=== PATIENT | female | born 1970 | race Caucasian/White ===

== ENCOUNTER 2019-07-23 09:51 | Day surgery (SDC) | payer MEDICAID ==
[2019-07-15 14:43] LABS: BASOPHILS % (AUTO) 0.4 % (0-1); EOSINOPHILS # (AUTO) 0.1 X10'3 (0-0.9); EOSINOPHILS % (AUTO) 0.8 % (0-6); LYMPHOCYTES # (AUTO) 1.9 X10'3 (1.1-4.8); LYMPHOCYTES % (AUTO) 20.3 % (21-51); MEAN CORPUSCULAR HEMOGLOBIN 32.1 PG (27.0-31.0); MEAN CORPUSCULAR HGB CONC 34.7 g/dL (33.0-36.5); MEAN CORPUSCULAR VOLUME 92.6 FL (78-98); MEAN PLATELET VOLUME 7.8 FL (7.4-10.4); MONOCYTES # (AUTO) 0.6 X10'3 (0-0.9); MONOCYTES % (AUTO) 6.4 % (2-12); NEUTROPHILS # (AUTO) 6.7 X10'3 (1.8-7.7); NEUTROPHILS % (AUTO) 72.1 % (42-75); PRE OP HEMATOCRIT 38.2 % (35.0-45.0); PRE OP HEMOGLOBIN 13.2 g/dL (12.0-16.0); PRE OP PLATELET COUNT 331 X10'3 (140-440); RED BLOOD COUNT 4.12 X10'6 (4.20-5.60); RED CELL DISTRIBUTION WIDTH 12.9 % (11.5-14.5)
[2019-07-15 14:55] LABS: ALBUMIN 3.5 G/DL (3.4-5.0); ALBUMIN/GLOBULIN RATIO 0.9 (1.1-1.5); ALKALINE PHOSPHATASE 48 IU/L (46-116); BLOOD UREA NITROGEN 8 MG/DL (7-18); BUN/CREATININE RATIO 9.9 (6.6-38.0); CHLORIDE 107 MMOL/L (99-107); CREATININE 0.81 MG/DL (0.40-0.90); PRE OP ALT 23 U/L (30-65); PRE OP ANION GAP 9 (8-16); PRE OP AST 14 U/L (10-37); PRE OP BILIRUB, TOTAL 0.3 MG/DL (0.0-1.0); PRE OP GLUCOSE 105 MG/DL (70-104); PRE OP SODIUM 143 MMOL/L (135-145); TOTAL CARBON DIOXIDE 26.9 MMOL/L (24-32); TOTAL PROTEIN 7.6 G/DL (6.4-8.2); eGFR 76 ML/MIN
[2019-07-15 15:01] LABS: HCG SERUM QL NEGATIVE
[2019-07-23] VITALS (9 sets, daily range): BP systolic 121–134; BP diastolic 63–89
[~2019-07-23] VITALS: Ht 167.6 cm; Wt 58.0 kg
[~2019-07-23 09:51] MED LIST: MELA3TAB64 PO; MULT-933 PO; OMEP40CA13 PO; SUMA50TA PO; VANCOMYCIN INJ 1000 MG in NORMAL SALINE 250ml IV.SOLN IV ONE; cefazolin/dext.iso 2gm/50ml 50 ML IV ONE; famotidine 20mg tablet PO ONE; ringers solution, lacted 1,000 ML IV SCH
[2019-07-23] MEDS ORDERED: labetalol 20mg/4ml (5mg/ml) syringe IV PRN (10:05)
[2019-07-23] MEDS ORDERED: ondansetron/PF 4mg/2ml inj IV PRN (10:05)
[2019-07-23] MEDS ORDERED: hydrALAZINE 20mg/ml inj. IV PRN (10:05)
[2019-07-23] MEDS ORDERED: fentaNYL/PF 50MCG/1 ML 2ML syringe IV PRN ×2 (10:05)
[2019-07-23] MEDS ORDERED: ringers solution, lacted 1,000 ML IV SCH (10:05)
[2019-07-23] MEDS ORDERED: morphine 4 MG/ML inj SYRINge IV PRN ×2 (10:05)
[2019-07-23] MEDS ORDERED: BUPIVAcaine 0.5% inj/PF 30 ML ONE (10:52)
[2019-07-23] MEDS ORDERED: BUPIVACAINE liposomal/PF 13.3 MG/ML vial IM ONE (10:52)
[2019-07-23] MEDS ORDERED: ketorolac trometh. 30mg/ml inj. ONE (10:54)
[2019-07-23] MEDS ORDERED: sevoflurane 250ml liquid IH ONE (10:54)
[2019-07-23] MEDS ORDERED: dexamethasone sod phosphate 10mg/ml inj ONE (10:54)
[2019-07-23] MEDS ORDERED: propofol inj 20 ML IV ONE (10:56)
[2019-07-23] MEDS ORDERED: fentaNYL/PF 50MCG/1 ML 2ML syringe ONE (10:56)
[2019-07-23] MEDS ORDERED: ondansetron/PF 4mg/2ml inj ONE (10:56)
[2019-07-23] MEDS ORDERED: LIDOcaine 2% (20mg/ml) 5ml vial ONE (10:56)
[2019-07-23] MEDS ORDERED: midazolam 2 mg/2 ml injection ONE (10:56)
[2019-07-23] MEDS ORDERED: BUPIVAcaine/PF 2.5mg/ml (0.25%) 10ml vial ONE (11:53)
--- NOTE | 2019-07-23 12:45 | NUR ---
Received from OR via BED , accompanied by Anesthesiologist DR MCGHEE and report given by Anesthesiolgist. PATIENT WAKING UP, DENIES PAIN, V/S WNL, NEUROVASCULAR CHECKS INTACT, 20G PIV LUE , DRESSING TO RIGHT SHOULDER CDI W/ COLD POWDER PACK AND IMMOBILIZER BRACE SLING W/ SCD ON.
--- NOTE | 2019-07-23 13:55 | NUR ---
PATIENT A&OX4, DENIES PAIN, V/S WNL, NEUROVASCULAR CHECKS INTACT, 20G PIV D/C WITH NO COMPLICATIONS OBSERVED , DRESSING TO RIGHT SHOULDER W/ COLD POWDER PACK AND IMMOBILIZER SLING ON , SCD OFF. I HAVE REVIEWED D/C INSTRUCTIONS WITH PATIENT AND FAMILY AND THEY HAVE VERBALIZED UNDERSTANDING. PATIENT D/C HOME WITH ALL BELONGINGS AND FAMILY GAVE TRANSPORT HOME.
== END 2019-07-23 13:55 | disposition home or self-care (01) ==
LOC: PAS 09:51
PROVIDERS: ATTEND Orthopaedic Surgery
DX: S43.431A Superior glenoid labrum lesion of right shoulder, initial encounter (principal); M75.41 Impingement syndrome of right shoulder; M19.011 Primary osteoarthritis, right shoulder; M94.211 Chondromalacia, right shoulder; J45.909 Unspecified asthma, uncomplicated; K21.9 Gastro-esophageal reflux disease without esophagitis; G43.909 Migraine, unspecified, not intractable, without status migrainosus; Z72.89 Other problems related to lifestyle; Z79.899 Other long term (current) drug therapy; G89.18 Other acute postprocedural pain; X58.XXXA Exposure to other specified factors, initial encounter; Y93.89 Activity, other specified; Y92.89 Other specified places as the place of occurrence of the external cause; Y99.8 Other external cause status
CPT/HCPCS: 29807; 29824; 29826; 36415; 64415; 80053; 82948; 84703; 85025; C1713; C9290; J1100; J1885; J2001; J2250; J2405; J2704; J3010; J3370; J3490; A4215; A4565; A4618; A6250; A6449; J7120